=== PATIENT | female | born 1965 | race Caucasian/White ===

== ENCOUNTER 2020-08-24 16:39 | Outpatient (RCR) | payer BC, SELFPAY ==
[2020-08-24] MEDS: COVID-19 VACC, MRNA(PFIZER)/PF 30 MCG/0.3 ML SYRINGE IM (11:31)
[2020-09-14] MEDS: COVID-19 VACC, MRNA(PFIZER)/PF 30 MCG/0.3 ML SYRINGE IM (11:26)
== END 2020-08-24 23:59 ==
LOC: IMMUN 16:39
PROVIDERS: PCP Nurse Practitioner Primary Care; Referring Provider Family Medicine; Visit Provider Family Medicine
DX: Z23 Encounter for immunization (principal)
CPT/HCPCS: 0001A; 0002A; 91300